=== PATIENT | female | born 1980 | race Caucasian/White ===

== ENCOUNTER 2018-01-01 14:30 | Emergency (ER) | payer OTHER ==
[~2018-01-01] VITALS: Ht 154.9 cm; Wt 80.7 kg
[~2018-01-01 14:30] MED LIST: CIPRO XR 5500 MG/BOT PO; CIPRO500 MG PO; DOLOGESIC 500-1 EACH PO; IRON1TAB4; KETO10TA2 PO; PYRIDIUM DS200 MG PO; URIN D.S. TABLE1 TAB PO
== END 2018-01-01 21:08 | disposition home or self-care (01) ==
LOC: ER 14:30
DX: R10.11 Right upper quadrant pain (principal)

== ENCOUNTER 2019-02-17 19:49 | Emergency (ER) | payer OTHER ==
[~2019-02-17] VITALS: Ht 152.4 cm; Wt 82.6 kg
== END 2019-02-17 23:40 | disposition home or self-care (01) ==
LOC: ER 19:49
DX: J06.9 Acute upper respiratory infection, unspecified (principal)

== ENCOUNTER 2022-05-16 01:28 | Emergency (ER) | payer OTHER ==
[~2022-05-16] VITALS: Ht 154.9 cm; Wt 80.3 kg
== END 2022-05-16 11:14 | disposition home or self-care (01) ==
LOC: ER 01:28
DX: R10.84 Generalized abdominal pain (principal)

== ENCOUNTER 2023-05-19 17:40 | Emergency (ER) | payer OTHER ==
[~2023-05-19] VITALS: Ht 154.9 cm; Wt 81.2 kg
[2023-05-19 20:45] LABS: MEAN CORPUSCULAR HGB CONC 29.9 g/dl (32.0-36.0); PLATELET COUNT 398 K/uL (150-450); RED BLOOD COUNT 4.26 M/uL (4.00-6.00); RED CELL DISTRIBUTION WIDTH 18.9 % (11.5-14.5)
[2023-05-19 20:46] LABS: HEMOGLOBIN 8.4 g/dL (12.0-15.00); MEAN CELL VOLUME 65.8 fL (80.00-100.00); MEAN CORPUSCULAR HEMOGLOBIN 19.7 pg (27.00-32.0)
== END 2023-05-19 21:09 | disposition home or self-care (01) ==
LOC: ER 17:42
PROVIDERS: General Practice
DX: K13.0 Diseases of lips (principal)

== ENCOUNTER 2023-12-24 14:41 | Emergency (ER) | payer OTHER ==
[~2023-12-24] VITALS: Ht 154.9 cm; Wt 87.1 kg
[2023-12-24 17:02] LABS: HEMATOCRIT 32.2 % (36.0-45.00); HEMOGLOBIN 10.3 g/dL (12.0-15.00); MEAN CELL VOLUME 75.7 fL (80.00-100.00); MEAN CORPUSCULAR HEMOGLOBIN 24.3 pg (27.00-32.0); PLATELET COUNT 320 K/uL (150-450); RED BLOOD COUNT 4.25 M/uL (4.00-6.00); RED CELL DISTRIBUTION WIDTH 16.7 % (11.5-14.5)
[2023-12-24 17:18] LABS: ALBUMIN 3.4 gm/dL (3.4-5.0); BILIRUBIN TOTAL 0.51 mg/dL (0.3-1.2); CALCIUM 8.8 mg/dL (8.5-10.1); CREATININE SERUM 0.71 mg/dL (0.55-1.02); GFR 89.85; GLOBULINA 4.2 G/DL (2.4-3.5); POTASSIUM 3.57 mEq/L (3.5-5.1); TOTAL PROTEIN 7.6 gm/dL (6.4-8.2)
[2023-12-24] MEDS ORDERED: IRON325 MG PO (18:12)
[2023-12-24] MEDS ORDERED: DEXAMETHASONE SODIUM PHOSPHATE 4 MG/ML VIAL IM STA (18:27)
[2023-12-24] MEDS ORDERED: DEXAMETHASONE SODIUM PHOSPHATE 4 MG/ML VIAL ONE (18:47)
== END 2023-12-24 18:51 | disposition home or self-care (01) ==
LOC: ER 14:43
DX: D64.9 Anemia, unspecified (principal); R21 Rash and other nonspecific skin eruption